=== PATIENT | female | born 1965 | race African-American/Black ===

== ENCOUNTER → 2017-05-01 | Day surgery (SDC) | payer MEDICARE, MEDICAID ==
[~2017-05-01] MED LIST: ANESTHESIA TRAY IN PYXIS 1 EA TRAY MC ONE; CEFAZOLIN SODIUM/DEXTROSE,ISO 50 ML IV ONE; CLINDAMYCIN 900 MG/6 ML VIAL ONE; DIPH25CA83 PO; EPINEPHRINE (1:1000) MDV 30 MG/30ML VIAL ONE; FENTANYL PF 100MCG/2ML AMPUL ONE; LIDOCAINE 1% INJ 50 ML MDV IJ ONE; LIDOCAINE MPF 1%-EPI 1:200,000 30 ML VIAL IJ ONE; MENTHOL/CETYLPYRD (CEPACOL) 1 LOZ LOZENGE PO PRN; MIDAZOLAM HCL 2 MG/2ML VIAL ONE; MORPHINE SULFATE INJ 10 MG/ML DISP.SYRIN ONE; ONDANSETRON HCL/PF 4 MG/2 ML VIAL ONE; PANT20TA2 PO; methylPREDNISolone ACETATE 80 MG/ML VIAL ONE
[2017-05-01 09:54] LABS: BASOPHILS % (AUTO) 0.6 % (0.0-2.0); EOSINOPHILS # (AUTO) 0.1 /CMM (0.0-0.7); EOSINOPHILS % (AUTO) 1.7 % (0.0-6.0); HEMATOCRIT 33 % (33-45); HEMOGLOBIN 10.4 g/dL (11.5-14.8); LYMPHOCYTES # (AUTO) 1.9 /CMM (0.8-4.8); LYMPHOCYTES % (AUTO) 28.3 % (20.0-44.0); MEAN CORPUSCULAR HEMOGLOBIN 25 PG (26.0-33.0); MEAN CORPUSCULAR HGB CONC 32 g/dl (31.0-36.0); MEAN CORPUSCULAR VOLUME 79 fL (82-100); MONOCYTES # (AUTO) 0.5 /CMM (0.1-1.30); MONOCYTES % (AUTO) 8.1 % (2.0-12.0); NEUTROPHILS # (AUTO) 4.1 /CMM (1.8-8.9); NEUTROPHILS % (AUTO) 61.3 % (43.0-81.0); PLATELET COUNT (AUTO) 328 /CMM (150-450); RDW COEFFICIENT OF VARIATION 16.4 (11.5-15.0); RED BLOOD CELL COUNT(AUTO) 4.15 MIL/uL (4.0-5.2); WHITE BLOOD COUNT (AUTO) 6.7 K/uL (4.3-11.0)
[2017-05-01 10:00] LABS: APPEARANCE,URINE CLEAR (CLEAR); BILIRUBIN,URINE NEGATIVE (NEGATIVE); BLOOD, URINE TRACE Ery/uL (NEGATIVE); COLOR,URINE YELLOW (YELLOW); KETONES,URINE NEGATIVE (NEGATIVE); LEUKOCYTE ESTERASE ,URINE 1+ (NEGATIVE); NITRITE, URINE NEGATIVE (NEGATIVE); PROTEIN,URINE NEGATIVE (NEGATIVE); UGLUCOSE NEGATIVE (NEGATIVE); UROBILINOGEN,URINE 0.2 EU/dL (0.2)
[2017-05-01 10:07] LABS: CALCIUM, SERUM 9.3 mg/dL (8.5-10.1); CREATININE 0.8 mg/dL (0.6-1.3); POTASSIUM 3.4 mmol/L (3.5-5.1)
[2017-05-01 10:09] LABS: BACTERIA,URINE 2+ /HPF (None Seen); RBC,URINE 0-2 /HPF (0-2); SQUAMOUS EPITHELIAL CELL,UR Many /HPF (None Seen)
[2017-05-01 10:13] LABS: ALBUMIN 3.5 g/dL (3.4-5.0); BILIRUBIN,TOTAL 0.2 mg/dL (0.2-1.0); TOTAL PROTEIN, SERUM 7.9 g/dL (6.4-8.2)
[2017-05-01 10:46] LABS: INR 0.93 (0.87-1.13); PROTHROMBIN TIME 9.7 SECS (9.5-12.7)
== END | disposition home or self-care (01) ==
LOC: DS 07:27
PROVIDERS: ATTEND Specialist
DX: M65.812 Other synovitis and tenosynovitis, left shoulder (principal); M75.42 Impingement syndrome of left shoulder; M19.012 Primary osteoarthritis, left shoulder; M25.812 Other specified joint disorders, left shoulder; F41.9 Anxiety disorder, unspecified; I10 Essential (primary) hypertension; K58.9 Irritable bowel syndrome, unspecified; D50.9 Iron deficiency anemia, unspecified; G89.29 Other chronic pain; Z90.49 Acquired absence of other specified parts of digestive tract; Z98.890 Other specified postprocedural states; Z79.899 Other long term (current) drug therapy; Z88.0 Allergy status to penicillin; Z88.8 Allergy status to other drugs, medicaments and biological substances
CPT/HCPCS: 29821; 29824; 29826; 36415; 80053; 81001; 84703; 85025; 85610; 85730; 87086; 88304; 88305; 88311; A4217; A6253; J0171; J0690 ×2; J1040; J1100; J2250 ×2; J2270; J2405 ×2; J2704; J3010; J3490 ×2; 81000-TC